=== PATIENT | female | born 1990 | race Two or more races ===

== ENCOUNTER → 2016-06-13 | Outpatient (CLI) | payer OTHER ==
--- NOTE | 2016-06-13 13:50 | DX ---
Left Foot, Three Views History: Bunionectomy. Findings: Oblique osteotomies of the metadiaphysis of the left first metatarsal with two screws demon strating satisfactory alignment. No bony fusion. Oblique osteotomy of the great toe proximal base wit h a staple in place demonstrating satisfactory alignment. Fracture line remains evident. Impression: Osteotomies with hardware involving the left great toe proximal phalanx and first metatar sudheer demonstrating satisfactory alignment without evidence of bony fusion.
== END ==
LOC: BMCIMAGING 12:47
PROVIDERS: ATTEND Podiatrist Foot & Ankle Surgery
DX: Z09 Encounter for follow-up examination after completed treatment for conditions other than malignant neoplasm (principal)

== ENCOUNTER → 2016-07-11 | Outpatient (CLI) | payer OTHER ==
--- NOTE | 2016-07-11 15:49 | DX ---
Left Foot, Three Views History: Bunionectomy. Z09. Comparison: June 13, 2016. Findings: Oblique osteotomy of the great toe proximal phalanx base, with staple in place, demonstrat es partial healing, with persistent partial visualization of the fracture line but normal alignment. Oblique osteotomy of the mid to distal diaphyseal shaft and neck of the left 1st metatarsal, with two oblique screws, demonstrates no significant change in alignment or callus formation. The screws ext end through the posterior cortex by approximately 3 mm. No acute fractures. Impressions 1. Left great toe and 1st metatarsal osteotomies and hardware, with suggestion of early healing of t he great toe but no definite callus formation of the 1st metatarsal. 2. No change in alignment.
== END ==
LOC: BMCIMAGING 14:18
PROVIDERS: ATTEND Podiatrist Foot & Ankle Surgery
DX: Z09 Encounter for follow-up examination after completed treatment for conditions other than malignant neoplasm (principal)

== ENCOUNTER → 2016-08-03 | Outpatient (CLI) | payer OTHER | LOC: BMCIMAGING 13:48 | PROVIDERS: ATTEND Podiatrist Foot & Ankle Surgery | DX: Z09 Encounter for follow-up examination after completed treatment for conditions other than malignant neoplasm (principal); Z98.890 Other specified postprocedural states ==

== ENCOUNTER → 2016-08-21 | Outpatient (CLI) | payer OTHER | LOC: BMCIMAGING 14:10 | PROVIDERS: ATTEND Podiatrist Foot & Ankle Surgery | DX: Z09 Encounter for follow-up examination after completed treatment for conditions other than malignant neoplasm (principal); Z98.890 Other specified postprocedural states ==

== ENCOUNTER → 2016-09-18 | Outpatient (CLI) | payer OTHER | LOC: BMCIMAGING 14:12 | PROVIDERS: ATTEND Podiatrist Foot & Ankle Surgery | DX: Z09 Encounter for follow-up examination after completed treatment for conditions other than malignant neoplasm (principal); Z98.890 Other specified postprocedural states ==

== ENCOUNTER → 2016-10-16 | Outpatient (CLI) | payer OTHER | LOC: BMCIMAGING 13:42 | PROVIDERS: ATTEND Podiatrist Foot & Ankle Surgery | DX: Z47.89 Encounter for other orthopedic aftercare (principal); Z98.1 Arthrodesis status ==